=== PATIENT | female | born 1960 | race Caucasian/White ===

== ENCOUNTER → 2017-10-02 15:22 | Outpatient (CLI) | payer OTHER, SELFPAY ==
--- NOTE | 2017-10-02 15:45 | XR_ITS ---
XR foot RT min 3V Ordering Physician: Kyra Najera Patient Age: 56 years: Female HISTORY: ITS.REASON: RT FOOT PAIN Foot pain no known injury. TECHNIQUE: 3 views of the right foot. Nonweightbearing. COMPARISON : FINDINGS No acute fracture nor dislocation. There is joint space narrowing at the first MTP joint suggestive developing mild degenerative changes here . NotePlantar calcaneal spur measuring up to 6 mm length.. IMPRESSION: . No fracture nor dislocation. Right foot intact. Mild narrowing first MTP joint suggesting early degenerative changes here Plantar Calcaneal spur Noted
== END ==
PROVIDERS: PCP Nurse Practitioner; Visit Provider Nurse Practitioner Family
DX: M79.671 Pain in right foot (principal)
CPT/HCPCS: 73630

== ENCOUNTER → 2018-03-04 15:05 | Outpatient (CLI) | payer OTHER, SELFPAY ==
--- NOTE | 2018-03-04 15:08 | CT_ITS ---
CT sinus wo con CLINICAL HISTORY:Sinus pain. Recurring sinus infections. Entire life ITS.REASON: Sinusitis ORDERING PHYSICIAN: Graeme Pool MD PATIENT AGE: 57 years COMPARISON:None TECHNIQUE: No oral nor IV contrast utilized Axial, sagittal and coronal images are generated and reviewed. All CT scans at this facility use one or more dose reduction techniques, viz.: automated exposure control, ma/kV adjustment per patient size (including targeted exams where dose is matched to indication, i.e. head) or iterative reconstruction technique. FINDINGS: Left maxillary sinus. A generous dome-shaped soft tissue density most compatible with a retention cyst at floor left maxillary sinus is measures 20 mm height, 27 mm AP. There is no mucosal thickening at the superior left maxillary sinus otherwise seen. The left OMC likely patent although narrowed due to mild mucosal thickening at its ostia/infundibulum. Right maxillary sinus. Trace slightly lobulated mucosal thickening throughout floor right maxillary sinus. Again there is some mild mucosal thickening along the right OMC at infundibulum and ostium which narrow and a partially occluded injury to the right ostiomeatal complex Ethmoid air cells. Only scant/borderline mucosal thickening. Inferior ethmoid air cells Prominent frontal sinuses clear unremarkable. Sphenoid sinuses clear Engorgement nasal turbinates bilaterally. Slight undulation nasal septum compartment. It deviates slightly to the right at the level of the larger left middle turbinate. Minor cheryl bullosa at left middle turbinate. The mastoid air cells are well-developed and clear bilaterally. No mastoid effusion. Middle ear clear. IACs unremarkable. External canal clear. Medial wall and floor of orbit intact. Orbital rim intact. Globes intact. IMPRESSION------- 1. Left maxillary sinus: Most likely Prominent mucous retention cyst accounts for the dome shaped density of floor left maxillary sinus measuring up to 2 cm height 2.7 cm AP. 2. Mild mucosal thickening floor right maxillary sinus. Only minor scant mucosal thickening floor of ethmoid air cell 3. Engorgement nasal turbinates bilaterally
== END ==
PROVIDERS: PCP Nurse Practitioner; Visit Provider Otolaryngology
DX: J32.9 Chronic sinusitis, unspecified (principal)
CPT/HCPCS: 70486

== ENCOUNTER → 2018-08-14 07:38 | Outpatient (CLI) | payer OTHER, SELFPAY ==
--- NOTE | 2018-08-14 07:41 | US_ITS ---
US abdomen limited History:Upper abdominal pain Ordering Physician:Kyra Najera APRN Patient Age: 57 years Comparison:None Findings: Pancreas:Unremarkable. No obvious mass or abnormal fluid collection. No ductal dilatation Liver:A septated 2 x 1.4 cm cyst is present in the right lobe of the liver Right Kidney:Unremarkable. Normal size and echogenicity. No hydronephrosis Gallbladder:No gallstones, gallbladder wall thickening, pericholecystic fluid, or biliary dilatation. Common duct measures 5 mm. There is a small amount of sludge within the gallbladder . Impression: 1. No gallstones. 2. Small amount of gallbladder sludge. 3. Hepatic cyst
== END ==
PROVIDERS: PCP Nurse Practitioner Family; Visit Provider Nurse Practitioner Family
DX: R10.10 Upper abdominal pain, unspecified (principal)
CPT/HCPCS: 76705

== ENCOUNTER → 2018-09-05 09:53 | Outpatient (CLI) | payer OTHER, SELFPAY ==
--- NOTE | 2018-09-05 09:58 | NM_ITS ---
NM hepatobiliary w pharm HISTORY: ITS.REASON: RUQ PAIN, SLUDGE ORDERING PHYSICIAN: Perri Sanford APRN PATIENT AGE: 57 years COMPARISON: None DOSE: 8.62 MCI TC Choletec 1.5 MCG CCK INJ Into RT ANT FINDINGS: Homogeneous activity is present within the hepatic parenchyma. Activity is present in the gallbladder by 15 minutes. Activity is present in the small bowel by 60 minutes. The gallbladder ejection fraction is calculated to be 98% The patient did not report pain or other symptoms during CCK infusion. IMPRESSION: Unremarkable hepatobiliary scan and gallbladder ejection fraction. No evidence of common or cystic duct obstruction with normal gallbladder ejection fraction
--- NOTE | 2018-09-05 10:41 | HMH.ITSHM ---
Current Home Medications as stated by this patient Heaven Hernandez or member service representative. []RANITIDINE LORATADINE LEVOTHYROXINE ESCITALOPRAM SUCRALFATE MONTELUKAST FLONASE NEXIUM
== END ==
PROVIDERS: PCP Nurse Practitioner; Visit Provider Nurse Practitioner
DX: R10.10 Upper abdominal pain, unspecified (principal); K21.0 Gastro-esophageal reflux disease with esophagitis
CPT/HCPCS: 78227; A9537; J2805

== ENCOUNTER 2018-09-06 07:54 | Day surgery (SDC) | payer OTHER, SELFPAY ==
[2018-09-03 13:41] VITALS: BMI 28.1
[2018-09-06] VITALS (7 sets, daily range): BP systolic 117–151; BP diastolic 64–85; PULSE 60–77; RESP 18; TEMP 36.3–36.4; O2SAT 95–98
--- NOTE | 2018-09-06 09:11 | P.PN_ITS ---
[facility] Anesthesia Checklist - Patient Identification Patient Identification: Arm Band, Verbal (Name & ) - Structural Data Admitted From: Home Planned Operative Procedure/s: EGD Consent for Planned Operative Procedure(s) Verified: Yes Verified Documents: Surgical Consent, History and Physical - NPO Status Verified Time NPO: 00:00 - Additional verifications Patient : No Anesthesia Reactions: No - Airway Assessment C-Spine Mobility Assessed: Yes TMJ Mobility Assessed: Yes Dentition: Good Dentition - Neurological Assessment Level of Consciousness: Awake, Alert, Appropriate, Follows Commands Hx Seizures: No Numbness or tingling in extremities: No - Anesthesia Plan Anesthesia Risk discussed: Yes Anesthesia Plan: Verified ASA Class: III Anesthesia Type: MAC [facility] History I have reviewed the patient's past medical history: Yes Medical History: Reports:: Asthma, Depression, Gastroesophageal Reflux Disease(GERD) Denies:: Diabetes Mellitus Type 1, Diabetes Mellitus Type 2, Internal Pacemaker, Seizures *Have you ever received a pneumonia vaccine?: Yes *Have you received a flu vaccine this season?: No Other Medical History: Reports: Hypothyroidism Laterality Cases: Left: Other Other Surgeries: Yes: Appendectomy, . No: Pacemaker - *Social History Smoking Status: Never smoker Alcohol Intake: never *Occupational Status:: unemployed, employed *Travel in the last 8 weeks: None (unknown) Family Hx:: No significant family history
--- NOTE | 2018-09-06 09:32 | P.PCN_ITS ---
[facility] Procedure Note Procedure Note:: Upper Endoscopy Procedure Report: Esophagogastroduodenoscopy with cold biopsies Endoscopost: Leoncio Lopez II, MD Referring Physician: Tip Ferreira MD Date of Procedure: September 06, 2018 Equipment: Olympus GIF 180 standard upper endoscope Sedation: MAC sedation Indications: Mrs. Hernandez is a 57-year-old female with marked intractable reflux/GERD. She is taking Prilosec twice daily. She also takes Zantac a couple of times daily. She has heartburn. She reports epigastric and mid retrosternal pain and discomfort. She does have attacks of pain and can have some intermittent choking and globus sensation. She reports bloating, gassiness and nausea. She reports no dysphagia. She reports no early satiety. She reports mostly regular bowel function but does have some intermittent bowel urgency. Her last endoscopy was 7 to 8 years ago and she was told to take Prilosec and increase to the point of control of symptoms. The patient reports no melena or weight loss. Procedure: Prior to the procedure, a history and physical exam was performed, and patient's medications and allergies were reviewed. The risks, benefits and alternatives of the sedation and procedure were discussed with the patient. All questions were answered and informed consent was obtained. The patient was brought to the procedure room. Patient identification and proposed procedure were verified by the physician and the nurse. The patient was placed in a left lateral decubitus position and the scope was passed under direct vision. Throughout the procedure, the patient's blood pressure, pulse, and oxygen saturations were monitored continuously. The upper GI endoscopy was accomplished without difficulty. The patient tolerated the procedure well. Findings: The scope was passed directly into the upper esophagus and advanced to the third portion of the duodenum. The post bulbar duodenum and duodenal bulb were normal with normal mucosa and conniventes. Cold biopsies were taken from the post bulbar duodenum to rule out celiac disease. The scope was withdrawn through a normal duodenal bulb and pylorus into the stomach. There was linear reactive erosive gastropathy of the antrum. Biopsies were taken from the antrum. There was superficial erosion/ulceration at the junction of the antrum and body with some chronic gastritis. The remainder of the antrum, body and fundus of the stomach were grossly normal. Upon retroflexion there was a small to medium sized sliding hiatal hernia (2 to 3 cm). 2 biopsies were taken in the body and along the lesser curvature for histology to rule out gastritis and/or H pylori. The scope was then withdrawn into the esophagus. There was grade A reflux esophagitis but no evidence of Agustin's esophagus. There were tertiary contractions and evidence of moderate esophageal dysmotility. There was no stricturing or inlet patch. The remainder of the esophageal mucosa was normal. Impression: 1. Grade A reflux esophagitis with moderate esophageal dysmotility and medium sized sliding hiatal hernia (2 to 3 cm) 2. Chronic gastritis with superficial ulceration and antral linear reactive gastropathy Plan: I will follow up the biopsies. I do feel that the patient has functional dyspepsia and functional GERD. We will discuss additional dietary measures and treatment options.
== END 2018-09-06 10:30 | disposition home or self-care (01) ==
LOC: OUTP 07:57
PROVIDERS: PCP Nurse Practitioner; Visit Provider Internal Medicine Gastroenterology
PROC: 0DJ08ZZ Inspection of Upper Intestinal Tract, Via Natural or Artificial Opening Endoscopic (ICD-10-PCS; CPT 43235; principal; 2018-09-06 09:00)
DX: K21.0 Gastro-esophageal reflux disease with esophagitis (principal); K44.9 Diaphragmatic hernia without obstruction or gangrene; K22.4 Dyskinesia of esophagus; K25.7 Chronic gastric ulcer without hemorrhage or perforation; Z79.899 Other long term (current) drug therapy
CPT/HCPCS: 43239; 88305

== ENCOUNTER → 2018-10-28 09:24 | Outpatient (POV) | payer OTHER, SELFPAY | PROVIDERS: PCP Family Medicine; Visit Provider Nurse Practitioner Family | DX: Z00.00 Encounter for general adult medical examination without abnormal findings (principal) ==

== ENCOUNTER → 2019-05-05 14:50 | Outpatient (CLI) | payer OTHER, SELFPAY ==
[2019-05-05 15:12] LABS: Basophils % 0.5 % (0.1-2.0); Eosinophils # 0.3 K/mm3 (0.0-0.4); Eosinophils % 2.7 % (0.1-12.0); Hematocrit 44.3 % (37.0-47.0); Hemoglobin 14.8 g/dL (12.2-16.2); Lymphocytes # 2.1 K/mm3 (0.7-4.5); Lymphocytes % 22.5 % (10-50); Mean Corpuscular HGB Conc 33.5 g/dL (31.8-35.4); Mean Corpuscular Hemoglobin 27.8 pg (27.0-31.2); Mean Platelet Volume 7.7 fl (7.4-10.4); Monocytes # 0.5 K/mm3 (0.1-1.0); Monocytes % 4.8 % (1.7-9.3); Neutrophils # 6.6 K/mm3 (1.8-7.8); Neutrophils % 69.6 % (37.0-80.0); Platelet Count 286 K/mm3 (142-424); Red Blood Count 5.33 M/mm3 (4.20-5.40); Red Cell Distribution Width 14.5 % (11.5-17.5); White Blood Count 9.5 K/mm3 (4.8-10.8)
[2019-05-05 16:00] LABS: Troponin I < 0.02 ng/ml (0.00-0.06)
[2019-05-05 16:04] LABS: Alanine Aminotransferase 63 U/L (9-52); Albumin/Globulin Ratio 1.2 (1.1-1.8); Alkaline Phosphatase 51 U/L (46-116); Aspartate Amino Transferase 24 U/L (15-37); Bilirubin,Total 0.3 mg/dL (0.2-1.0); Blood Urea Nitrogen 33 mg/dL (7-18); Calcium 9.1 mg/dL (8.5-10.1); Carbon Dioxide 27 mmol/L (21.0-32.0); Chloride 105 mmol/L (98-107); Chol/HDL Ratio 4.4 (1-3.5); Cholesterol 185 mg/dL (140-200); Creatinine,Serum 0.75 mg/dL (0.55-1.02); Estimated Glomerular Filt Rate 80 ml/min (>60); GFR (African American) 96 ML/MIN (>60); Globulin 3.3 gm/dl (1.3-3.2); Glucose 99 mg/dL (74-106); HDL Cholesterol 42 mg/dL (29-89); LDL Cholesterol 110 mg/dL (0-130); Sodium 141 mmol/L (137-145); Thyroid Stimulating Hormone 6.17 uIU/ml (0.358-3.740); Total Protein,Serum 7.3 g/dL (6.4-8.2); Triglycerides 163 mg/dL (30-200); VLDL Cholesterol 33 mg/dL (0-40)
== END ==
PROVIDERS: Visit Provider Nurse Practitioner Family
DX: R07.9 Chest pain, unspecified (principal)
CPT/HCPCS: 36415; 80053; 80061; 84443; 84484; 85025